=== PATIENT | male | born 1955 | race Caucasian/White ===

== ENCOUNTER 2018-10-17 05:56 | Inpatient (IN) | payer MEDICARE, OTHER ==
[2018-10-17] MEDS: PROPOFOL 200 MG INJ IV (06:14)
[2018-10-17] MEDS: ONDANSETRON 4 MG INJ IV ×3 (06:40→10:47)
[2018-10-17] MEDS: SOD CHLORIDE 0.9% 1,000 ML IV (06:41)
[2018-10-17] MEDS: HYDROmorphONE 1 MG/ML SYG IV ×2 (06:41→08:14)
[2018-10-17] MEDS: morphine 4 MG/ML VIAL IV (10:46)
[2018-10-17 10:52] LABS: ADD MAN DIFF? NO
[2018-10-17 11:01] LABS: WHITE BLOOD COUNT 11.7 10^3/ul (4.8-10.8)
[2018-10-17 11:01] LABS: BASOPHIL # 0.1 10^3/ul (0.0-0.1); BASOPHILS % 0.5 % (0.0-2.0); EOSINOPHILS # 0.1 10^3/ul (0.0-0.5); EOSINOPHILS % 0.9 % (0.0-7.0); HEMATOCRIT 41.7 % (42.0-52.0); LYMPHOCYTES # 1.4 10^3/ul (0.8-2.9); LYMPHOCYTES % 12.1 % (15.0-51.0); MEAN CORPUSCULAR HEMOGLOBIN 31.3 pg (29.0-33.0); MEAN CORPUSCULAR HGB CONC 33.6 g/dl (32.0-37.0); MEAN CORPUSCULAR VOLUME 93.3 fl (82.0-101.0); MEAN PLATELET VOLUME 10.1 fl (7.4-10.4); MONOCYTE # 0.9 10^3/ul (0.3-0.9); MONOCYTES % 7.4 % (0.0-11.0); NEUTROPHIL # 9.2 10^3/ul (1.6-7.5); NEUTROPHILS % 78.8 % (39.0-77.0); PLATELET COUNT 200 10^3/UL (140-415); RED BLOOD COUNT 4.47 10^6/ul (4.70-6.10); RED CELL DISTRIBUTION WIDTH 12.2 % (11.5-14.5)
[2018-10-17 11:14] LABS: INR 0.97; PARTIAL THROMBOPLASTIN TIME 27.2 Sec (23.0-35.0)
[2018-10-17 11:18] LABS: ALANINE AMINOTRANSFERASE 27 IU/L (13-69); ALBUMIN 3.6 g/dl (3.3-4.9); ALBUMIN/GLOBULIN RATIO 1.71; ALKALINE PHOSPHATASE 66 IU/L (42-121); ANION GAP 8 (5-13); ASPARTATE AMINO TRANSFERASE 21 IU/L (15-46); BILIRUBIN,INDIRECT 0.2 mg/dl (0-1.1); BILIRUBIN,TOTAL 0.2 mg/dl (0.2-1.3); BLOOD UREA NITROGEN 13 mg/dl (7-20); CALCIUM 8.5 mg/dl (8.4-10.2); CARBON DIOXIDE 22 mmol/L (21-31); CHLORIDE 110 mmol/L (97-110); CREATININE 0.76 mg/dl (0.61-1.24); Estimated GFR > 60 mL/min (>60); GLUCOSE 98 mg/dl (70-220); POTASSIUM 4.1 mmol/L (3.5-5.1); SODIUM 140 mmol/L (135-144); TOTAL PROTEIN 5.7 g/dl (6.1-8.1)
[2018-10-17 11:29] LABS: TROPONIN-I < 0.012 ng/ml (0.000-0.120)
[2018-10-17] MEDS: morphine 2 MG INJ IV ×3 (13:58→22:31)
[2018-10-17] MEDS ORDERED: MECLIZINE 25 MG TAB PO (14:00)
[2018-10-17] MEDS ORDERED: ONDANSETRON 4 MG INJ IV (14:00)
[2018-10-17] MEDS: CITALOPRAM 20 MG TAB PO (15:05)
[2018-10-17] MEDS: PREGABALIN 25 MG CAP PO ×2 (15:05→20:27)
[2018-10-17] MEDS: OXCARBAZEPINE 300 MG TAB PO ×2 (16:00→20:24)
[2018-10-17] MEDS: HYDROCODONE/APAP (5/325) TAB PO (19:35)
[2018-10-17] MEDS: DOCUSATE SODIUM 100 MG CAP PO (20:24)
[2018-10-17] MEDS: traZODone 100 MG TAB PO (20:24)
[2018-10-17] MEDS ORDERED: PREGABALIN 25 MG CAP PO (21:00)
[2018-10-18] MEDS: morphine 2 MG INJ IV ×2 (02:52→08:10)
[2018-10-18] MEDS: HYDROCODONE/APAP (5/325) TAB PO ×3 (05:54→19:02)
[2018-10-18] MEDS: FAMOTIDINE 20 MG TAB PO (08:09)
[2018-10-18] MEDS: PREGABALIN 25 MG CAP PO ×2 (08:09→20:35)
[2018-10-18] MEDS: DOCUSATE SODIUM 100 MG CAP PO ×2 (08:09→20:35)
[2018-10-18] MEDS: CITALOPRAM 20 MG TAB PO (08:09)
[2018-10-18] MEDS: OXCARBAZEPINE 300 MG TAB PO ×2 (08:09→20:35)
[2018-10-18 08:22] LABS: ADD MAN DIFF? NO
[2018-10-18 08:30] LABS: WHITE BLOOD COUNT 6.6 10^3/ul (4.8-10.8)
[2018-10-18 08:30] LABS: BASOPHIL # 0.1 10^3/ul (0.0-0.1); BASOPHILS % 0.8 % (0.0-2.0); EOSINOPHILS # 0.1 10^3/ul (0.0-0.5); EOSINOPHILS % 1.8 % (0.0-7.0); HEMATOCRIT 42.4 % (42.0-52.0); HEMOGLOBIN 14.1 g/dl (14.0-18.0); LYMPHOCYTES # 0.9 10^3/ul (0.8-2.9); LYMPHOCYTES % 13.9 % (15.0-51.0); MEAN CORPUSCULAR HEMOGLOBIN 31.2 pg (29.0-33.0); MEAN CORPUSCULAR HGB CONC 33.3 g/dl (32.0-37.0); MEAN CORPUSCULAR VOLUME 93.8 fl (82.0-101.0); MEAN PLATELET VOLUME 10.6 fl (7.4-10.4); MONOCYTE # 0.8 10^3/ul (0.3-0.9); MONOCYTES % 12.4 % (0.0-11.0); NEUTROPHIL # 4.6 10^3/ul (1.6-7.5); NEUTROPHILS % 70.8 % (39.0-77.0); PLATELET COUNT 200 10^3/UL (140-415); RED BLOOD COUNT 4.52 10^6/ul (4.70-6.10); RED CELL DISTRIBUTION WIDTH 12.3 % (11.5-14.5)
[2018-10-18 09:26] LABS: ANION GAP 8 (5-13); BLOOD UREA NITROGEN 16 mg/dl (7-20); CALCIUM 9.3 mg/dl (8.4-10.2); CARBON DIOXIDE 26 mmol/L (21-31); CHLORIDE 106 mmol/L (97-110); CREATININE 0.85 mg/dl (0.61-1.24); Estimated GFR > 60 mL/min (>60); GLUCOSE 95 mg/dl (70-220); POTASSIUM 4.1 mmol/L (3.5-5.1); SODIUM 140 mmol/L (135-144)
[2018-10-18] MEDS: traZODone 100 MG TAB PO (20:35)
[2018-10-19] MEDS: HYDROCODONE/APAP (5/325) TAB PO ×3 (01:14→16:58)
[2018-10-19 07:32] LABS: ADD MAN DIFF? NO
[2018-10-19 07:37] LABS: BASOPHILS % 0.6 % (0.0-2.0); EOSINOPHILS # 0.1 10^3/ul (0.0-0.5); EOSINOPHILS % 1.8 % (0.0-7.0); HEMATOCRIT 44.1 % (42.0-52.0); HEMOGLOBIN 14.4 g/dl (14.0-18.0); LYMPHOCYTES # 1.1 10^3/ul (0.8-2.9); MEAN CORPUSCULAR HEMOGLOBIN 30.6 pg (29.0-33.0); MEAN CORPUSCULAR HGB CONC 32.7 g/dl (32.0-37.0); MEAN CORPUSCULAR VOLUME 93.8 fl (82.0-101.0); MEAN PLATELET VOLUME 10.4 fl (7.4-10.4); MONOCYTE # 0.8 10^3/ul (0.3-0.9); MONOCYTES % 11.5 % (0.0-11.0); NEUTROPHIL # 4.6 10^3/ul (1.6-7.5); NEUTROPHILS % 69.6 % (39.0-77.0); PLATELET COUNT 200 10^3/UL (140-415)
[2018-10-19 07:37] LABS: WHITE BLOOD COUNT 6.6 10^3/ul (4.8-10.8)
[2018-10-19 07:51] LABS: ANION GAP 7 (5-13); BLOOD UREA NITROGEN 21 mg/dl (7-20); CALCIUM 9.3 mg/dl (8.4-10.2); CARBON DIOXIDE 27 mmol/L (21-31); CHLORIDE 105 mmol/L (97-110); CREATININE 0.86 mg/dl (0.61-1.24); Estimated GFR > 60 mL/min (>60); GLUCOSE 114 mg/dl (70-220); POTASSIUM 4.3 mmol/L (3.5-5.1); SODIUM 139 mmol/L (135-144)
[2018-10-19] MEDS: PREGABALIN 25 MG CAP PO ×2 (08:25→20:18)
[2018-10-19] MEDS: CITALOPRAM 20 MG TAB PO (08:25)
[2018-10-19] MEDS: FAMOTIDINE 20 MG TAB PO (08:26)
[2018-10-19] MEDS: DOCUSATE SODIUM 100 MG CAP PO ×2 (08:26→20:18)
[2018-10-19] MEDS: OXCARBAZEPINE 300 MG TAB PO ×2 (08:26→20:18)
[2018-10-19] MEDS: traZODone 100 MG TAB PO (20:18)
[2018-10-20] MEDS: HYDROCODONE/APAP (5/325) TAB PO ×4 (01:41→23:57)
[2018-10-20 07:39] LABS: ADD MAN DIFF? NO
[2018-10-20 07:42] LABS: BASOPHIL # 0.1 10^3/ul (0.0-0.1); BASOPHILS % 0.9 % (0.0-2.0); EOSINOPHILS # 0.2 10^3/ul (0.0-0.5); EOSINOPHILS % 2.5 % (0.0-7.0); HEMATOCRIT 46.2 % (42.0-52.0); HEMOGLOBIN 15.3 g/dl (14.0-18.0); LYMPHOCYTES # 1.1 10^3/ul (0.8-2.9); LYMPHOCYTES % 17.5 % (15.0-51.0); MEAN CORPUSCULAR HEMOGLOBIN 30.9 pg (29.0-33.0); MEAN CORPUSCULAR HGB CONC 33.1 g/dl (32.0-37.0); MEAN CORPUSCULAR VOLUME 93.3 fl (82.0-101.0); MEAN PLATELET VOLUME 10.2 fl (7.4-10.4); MONOCYTE # 0.7 10^3/ul (0.3-0.9); MONOCYTES % 10.6 % (0.0-11.0); NEUTROPHIL # 4.4 10^3/ul (1.6-7.5); NEUTROPHILS % 68.2 % (39.0-77.0); PLATELET COUNT 214 10^3/UL (140-415); RED BLOOD COUNT 4.95 10^6/ul (4.70-6.10); RED CELL DISTRIBUTION WIDTH 12.1 % (11.5-14.5)
[2018-10-20 07:42] LABS: WHITE BLOOD COUNT 6.4 10^3/ul (4.8-10.8)
[2018-10-20 08:14] LABS: ANION GAP 8 (5-13); BLOOD UREA NITROGEN 21 mg/dl (7-20); CALCIUM 9.4 mg/dl (8.4-10.2); CARBON DIOXIDE 23 mmol/L (21-31); CHLORIDE 108 mmol/L (97-110); Estimated GFR > 60 mL/min (>60); GLUCOSE 107 mg/dl (70-220); POTASSIUM 4.2 mmol/L (3.5-5.1); SODIUM 139 mmol/L (135-144)
[2018-10-20] MEDS: DOCUSATE SODIUM 100 MG CAP PO ×2 (08:57→20:15)
[2018-10-20] MEDS: PREGABALIN 25 MG CAP PO ×2 (08:57→20:15)
[2018-10-20] MEDS: FAMOTIDINE 20 MG TAB PO (08:58)
[2018-10-20] MEDS: OXCARBAZEPINE 300 MG TAB PO ×2 (08:58→20:15)
[2018-10-20] MEDS: CITALOPRAM 20 MG TAB PO (08:58)
[2018-10-20] MEDS: traZODone 100 MG TAB PO (20:15)
[2018-10-21] MEDS: HYDROCODONE/APAP (5/325) TAB PO ×2 (05:38→11:29)
[2018-10-21] MEDS: PREGABALIN 25 MG CAP PO (08:45)
[2018-10-21] MEDS: FAMOTIDINE 20 MG TAB PO (08:45)
[2018-10-21] MEDS: OXCARBAZEPINE 300 MG TAB PO (08:45)
[2018-10-21] MEDS: DOCUSATE SODIUM 100 MG CAP PO (08:45)
[2018-10-21] MEDS: CITALOPRAM 20 MG TAB PO (08:45)
[2018-10-21 11:45] LABS: ADD MAN DIFF? NO
[2018-10-21 11:48] LABS: BASOPHIL # 0.1 10^3/ul (0.0-0.1); BASOPHILS % 1.1 % (0.0-2.0); EOSINOPHILS # 0.1 10^3/ul (0.0-0.5); EOSINOPHILS % 2.1 % (0.0-7.0); HEMATOCRIT 46.7 % (42.0-52.0); HEMOGLOBIN 15.5 g/dl (14.0-18.0); LYMPHOCYTES # 1.3 10^3/ul (0.8-2.9); LYMPHOCYTES % 19.1 % (15.0-51.0); MEAN CORPUSCULAR HEMOGLOBIN 31.1 pg (29.0-33.0); MEAN CORPUSCULAR HGB CONC 33.2 g/dl (32.0-37.0); MEAN CORPUSCULAR VOLUME 93.6 fl (82.0-101.0); MEAN PLATELET VOLUME 10.3 fl (7.4-10.4); MONOCYTE # 0.7 10^3/ul (0.3-0.9); MONOCYTES % 10.8 % (0.0-11.0); NEUTROPHIL # 4.4 10^3/ul (1.6-7.5); NEUTROPHILS % 66.4 % (39.0-77.0); PLATELET COUNT 230 10^3/UL (140-415); RED BLOOD COUNT 4.99 10^6/ul (4.70-6.10); RED CELL DISTRIBUTION WIDTH 12.3 % (11.5-14.5)
[2018-10-21 11:48] LABS: WHITE BLOOD COUNT 6.6 10^3/ul (4.8-10.8)
[2018-10-21 12:10] LABS: ALANINE AMINOTRANSFERASE 80 IU/L (13-69); ALBUMIN 4.3 g/dl (3.3-4.9); ALBUMIN/GLOBULIN RATIO 1.72; ALKALINE PHOSPHATASE 101 IU/L (42-121); ANION GAP 11 (5-13); ASPARTATE AMINO TRANSFERASE 42 IU/L (15-46); BILIRUBIN,INDIRECT 0.4 mg/dl (0-1.1); BILIRUBIN,TOTAL 0.4 mg/dl (0.2-1.3); BLOOD UREA NITROGEN 26 mg/dl (7-20); CALCIUM 9.6 mg/dl (8.4-10.2); CARBON DIOXIDE 24 mmol/L (21-31); CHLORIDE 106 mmol/L (97-110); CREATININE 0.89 mg/dl (0.61-1.24); Estimated GFR > 60 mL/min (>60); GLUCOSE 91 mg/dl (70-220); POTASSIUM 4.6 mmol/L (3.5-5.1); SODIUM 141 mmol/L (135-144); TOTAL PROTEIN 6.8 g/dl (6.1-8.1)
[2018-10-21 12:41] LABS: THYROID STIMULATING HORMONE 0.818 MIU/L (0.465-4.680)
== END 2018-10-21 13:15 | DRG 563 ==
LOC: E/R 05:56 → PP2 10:57 → 5EC 18:52
DX: S52.591A Other fractures of lower end of right radius, initial encounter for closed fracture (principal); F20.0 Paranoid schizophrenia; Z72.0 Tobacco use; Z85.828 Personal history of other malignant neoplasm of skin
CPT/HCPCS: 71045; 73100; 73100-52; 73110-RT; 74018; 80048; 80053; 83735; 84443; 84484; 85025; 85610; 85730; 94770; 96361; 96374; 96375; 96376; 97161; 97166; 97535; 99217; 99291-25; G0378